=== PATIENT | female | born 1950 | race African-American/Black ===

== ENCOUNTER → 2016-12-11 | Outpatient (CLI) | payer MEDICARE, OTHER ==
--- NOTE | 2016-12-11 17:18 | WOMENS IMAGING REPORT ---
EXAM DESCRIPTION: LEFT SCREENING MAMMO W/CAD COMPLETED DATE/TIME: 12/11/2016 11:25 am REASON FOR STUDY: ROUTINE LEFT SCREENING;Z12.31 Z12.31 ENCNTR SCREEN MAMMOGRAM FOR MALIGNANT NEOPLA SM OF CHRISTIAN COMPARISON: 12/11/2015 and 12/30/2014. TECHNIQUE: Standard craniocaudal and mediolateral oblique views of the breast recorded using digital acquisition. LIMITATIONS: None. FINDINGS: BREAST: left Findings present which are benign by mammographic criteria. No suspicious masses, calcifications or a rchitectural distortion. Pertinent benign findings: Stable calcifications. Read with the assistance of CAD. .[facility] - R2 Cenova Version 1.3 .[facility] Imaging - R2 Cenova Version 1.3 .[facility] - R2 Cenova Version 2.4 [place] [place] C[place]ova [place] 2.4 .[facility] - R2 Weld Inspector Version 9.2 Benign mammographic findings may include one or more of the following: Smooth masses, popcorn/rim/co arse calcifications, asymmetries, post-procedure changes, and lesions with long-standing stability. IMPRESSION: NORMAL MAMMOGRAM. BIRADS 2. BREAST DENSITY: c. The breasts are heterogeneously dense, which may obscure small masses. BIRAD: 2 BENIGN FINDING(S) RECOMMENDATION: RECOMMENDATION: ROUTINE SCREENING. COMMENT: The patient has been notified of the results by letter per SA requirements. Additional no tification policies are in place for contacting patient with suspicious or incomplete findings. Quality ID #[id number]: The [employer] recommends an annual screening mammogram for women aged 40 years or over. This facility utilizes a reminder system to ensure that all patients receive reminder letters, and/or direct phone calls for appointments. This includes reminders for routine scr eening mammograms, diagnostic mammograms, or other Breast Imaging Interventions when appropriate. Th is patient will be placed in the appropriate reminder system. The [employer] (ACR) has developed recommendations for screening MRI of the breast s in certain patient populations, to be used in conjunction with mammography. Breast MRI surveillance may be appropriate for women with more than 20% lifetime risk of developing breast cancer as determi lyndsey by genetic testing, significant family history of the disease, or history of mantle radiation for Hodgkins Disease. ACR Practice Guidelines 2008. TECHNICAL DOCUMENTATION: FINDING NUMBER: (1) ASSESSMENT: (1) JOB ID: [id number] [employer]- All Rights Reserved
== END ==
LOC: WI 11:05
PROVIDERS: ATTEND Surgery
DX: Z12.31 Encounter for screening mammogram for malignant neoplasm of breast (principal)
CPT/HCPCS: G0202-52

== ENCOUNTER → 2017-01-03 | Outpatient (CLI) | payer MEDICARE, OTHER ==
--- NOTE | 2017-01-03 11:19 | RADIOLOGY REPORT (SQ) ---
EXAM DESCRIPTION: CT ABD/PELVIS NO ORAL OR IV COMPLETED DATE/TIME: 01/03/2017 8:08 am REASON FOR STUDY: ABD PAIN (R10.9) R10.9 UNSPECIFIED ABDOMINAL PAIN COMPARISON: None. TECHNIQUE: CT scan of the abdomen and pelvis performed without intravenous or oral contrast. Images reviewed with lung, soft tissue, and bone windows. Reconstructed coronal and sagittal MPR images revi ewed. All images stored on PACS. All CT scanners at this facility use dose modulation, iterative reconstruction, and/or weight based d osing when appropriate to reduce radiation dose to as low as reasonably achievable (ALARA). [facility]: Dose Right [facility]: CareDose [facility]: Dose Right [facility]: Teradose 4D [facility]: Smart Technologies RADIATION DOSE: Up-to-date CT equipment and radiation dose reduction techniques were employed. CTDIv ol: 27.5 mGy. DLP: 1496 mGy-cm.mGy. LIMITATIONS: None. FINDINGS: LOWER CHEST: No significant findings. No nodules or infiltrates. NON-CONTRASTED LIVER, SPLEEN, ADRENALS: Evaluation limited by lack of IV contrast. No identified sign ificant masses. PANCREAS: No masses. No peripancreatic inflammatory changes. GALLBLADDER: Multiple gallstones are present. There is no pericholecystic fluid or gallbladder wall thickening. There is no ductal dilatation. RIGHT KIDNEY AND URETER: No suspicious masses. Assessment limited by lack of IV contrast. No signif icant calcifications. No hydronephrosis or hydroureter. LEFT KIDNEY AND URETER: No suspicious masses. Assessment limited by lack of IV contrast. No signifi cant calcifications. No hydronephrosis or hydroureter. AORTA AND RETROPERITONEUM: No aneurysm. No retroperitoneal masses or adenopathy. BOWEL AND PERITONEAL CAVITY: A loop of what appears to be small bowel is seen in a ventral hernia lowell t measures about 5 or 6 cm in transverse diameter. There is no evidence of bowel obstruction. APPENDIX: Not identified. PELVIS, BLADDER, AND ABDOMINAL WALL:Urinary bladder is incompletely filled. There appears to be a sm all air bubble in the bladder. Has patient recently been catheterized? BONES: Bridging osteophytes are seen in the upper lumbar spine. OTHER: No other significant finding. IMPRESSION: 1. There is a prominent ventral hernia contains a loop bowel with no evidence of bowel obstruction. 2. There is a small bubble of air in the urinary bladder as discussed. TECHNICAL DOCUMENTATION: JOB ID: [id number] Quality ID # [id number]: Final reports with documentation of one or more dose reduction techniques (e.g., Au tomated exposure control, adjustment of the mA and/or kV according to patient size, use of iterative reconstruction technique) 2010 [employer]- All Rights Reserved
== END ==
LOC: RAD 07:30
PROVIDERS: ATTEND Internal Medicine Nephrology
DX: R10.30 Lower abdominal pain, unspecified (principal); N18.6 End stage renal disease
CPT/HCPCS: 74176

== ENCOUNTER → 2017-08-11 | Outpatient (CLI) | payer MEDICARE, OTHER ==
--- NOTE | 2017-08-11 09:52 | WOMENS IMAGING REPORT ---
EXAM DESCRIPTION: BONE DENSITY HIP/SPINE COMPLETED DATE/TIME: 08/11/2017 8:44 am REASON FOR STUDY: ASYMPTOMATIC MENOPAUSAL STATE Z78.0 ASYMPTOMATIC MENOPAUSAL STATE COMPARISON: None. TECHNIQUE: Dual-Energy X-ray Absorptiometry (DEXA) of the AP Spine and Hip. LIMITATIONS: None. FINDINGS: LUMBAR SPINE: The bone mineral density (BMD) measured from L1-L4 in the AP projection correlates with a T-score of +1.6, which is normal as defined by the World Health Organization. HIP: The bone mineral density (BMD) measured in the left femoral neck at the hip correlates with a T-score of +1.7, which is normal as defined by the World Health Organization. IMPRESSION: 1. LUMBAR SPINE: Normal 2. HIP: Normal COMMENT: The World Health Organization defines low BMD as follows: T-score: Normal: Greater than -1.0 Osteopenia: Between -1.0 and -2.5 Osteoporosis: Less than -2.5 without fractures Established osteoporosis: Less than -2.5 with fractures In general, you may wish to consider: Diagnosis Treatment Follow-up DEXA Normal BMD Prevention 2-3 years Osteopenia Prevention/Therapy 1-2 years Osteoporosis Therapy Yearly TECHNICAL DOCUMENTATION: JOB ID: [id number] [employer] All Rights Reserved
== END ==
LOC: WI 08:10
PROVIDERS: ATTEND Internal Medicine Geriatric Medicine
DX: Z78.0 Asymptomatic menopausal state (principal)
CPT/HCPCS: 77080

== ENCOUNTER 2017-08-22 22:39 | Emergency (ER) | payer MEDICARE, OTHER ==
[2017-08-22] MEDS ORDERED: DIPHENHYDRAMINE HCL 50 MG/ML VIAL IV ONE (22:51)
[2017-08-22] MEDS ORDERED: EPINEPHRINE INJ/PF 1 MG/1 ML AMPULE IM ONE (22:51)
[2017-08-22] MEDS ORDERED: FAMOTIDINE INJ/PF 20 MG/2 ML SDV IV ONE (22:52)
[2017-08-22] MEDS ORDERED: METHYLPREDNISOLONE INJ 125 MG/2 ML SDV IV ONE (22:52)
[2017-08-22] MEDS ORDERED: EPINEPHRINE INJ/PF 1 MG/1 ML AMPULE ONE (22:52)
--- NOTE | 2017-08-22 23:15 | ER Document Report ---
ED General - General Chief Complaint: Allergic Reaction Stated Complaint: POSSIBLE ALLERGIC REACTION Time Seen by Provider: 08/22/17 22:51 Notes: Patient is a 67-year-old male who presents with complaint of allergic reaction after eating shrimp. She has had allergic reaction to shrimp in the past. She said yesterday she transferred to the first time in a while and she did okay and therefore should again today. Today after eating it she immediately started to feel swollen red and itching. She is initially start feel itching into her chest and upper extremities and then started to progress into her throat and neck and face. She denies any difficulty talking but says she feels as if her neck is swelling. She is a dialysis patient. She does have a dialysis catheter in the right upper chest. She denies history of ME or coronary stenting. She denies chest pain at this time. No medicated of treatment before arrival to the ER. TRAVEL OUTSIDE OF THE [place] IN LAST 30 DAYS: No - Related Data Allergies/Adverse Reactions: Heparin Analogues [Heparin Agents] Allergy (Mild, Verified 09/15/13 10:25) latex [Latex] Allergy (Mild, Verified 09/15/13 10:25) Generalized Itching Past Medical History - Social History Smoking Status: Never Smoker Frequency of alcohol use: None Drug Abuse: None Family History: Reviewed & Not Pertinent - Past Medical History Cardiac Medical History: Reports: Hx Atrial Fibrillation, Hx Congestive Heart Failure, Hx Hypercholesterolemia, Hx Hypertension, Hx Heart Murmur Denies: Hx Coronary Artery Disease, Hx Heart Attack Pulmonary Medical History: Reports: Hx Bronchitis, Hx COPD Denies: Hx Asthma, Hx Pneumonia, Hx Tuberculosis Neurological Medical History: Denies: Hx Cerebrovascular Accident, Hx Seizures Endocrine Medical History: Reports: Hx Diabetes Mellitus Type 1, Hx Hypothyroidism Renal/ Medical History: Reports: Hx End Stage Renal Disease GI Medical History: Reports: Hx Gastroesophageal Reflux Disease Musculoskeltal Medical History: Reports Hx Arthritis Psychiatric Medical History: Reports: Hx Depression Past Surgical History: Reports: Hx Hysterectomy, Hx Tonsillectomy, Hx Vascular Surgery - right subclavian perm cath. Denies: Hx Pacemaker - Immunizations Hx Diphtheria, Pertussis, Tetanus Vaccination: Yes - <5 years Hx Pneumococcal Vaccination: 04/20/12 Review of Systems - Review of Systems Notes: My Normal Review Basic REVIEW OF SYSTEMS: CONSTITUTIONAL : Denies fever, chills, or sweats. Denies recent illness. EENT: Patient of neck swelling. CARDIOVASCULAR: Denies chest pain. RESPIRATORY: Denies cough, cold, or chest congestion. Denies shortness of breath, difficulty breathing, or wheezing. GASTROINTESTINAL: Denies abdominal pain. Denies nausea, vomiting, or diarrhea. FEMALE GENITOURINARY: Denies vaginal bleeding, abnormal or irregular periods. LMP: MUSCULOSKELETAL: Denies neck or back pain or joint pain or swelling. SKIN: Redness of skin of neck face and upper torso. NEUROLOGICAL: Denies altered mental status or loss of consciousness. Denies headache. Denies weakness or paralysis or loss of use of either side. Denies problems with gait or speech. Denies sensory or motor loss. ALL OTHER SYSTEMS REVIEWED AND NEGATIVE. Physical Exam - Vital signs Vitals: Temp Pulse Resp BP Pulse Ox 98.8 F 83 18 146/63 H 96 08/22/17 22:40 08/22/17 22:40 08/22/17 22:40 08/22/17 22:40 08/22/17 22:40 - Notes Notes: General Appearance: Well nourished, alert, patient's voice is normal however she appears anxious because her reaction. She is not gasping for breath and she is handling secretions appropriately. Vitals: reviewed, See vital signs table. Head: no swelling or tenderness to the head Eyes: PERRL, EOMI, Conjuctiva clear Mouth: No decreasd moisture Throat: No tonsillar inflammation, No airway obstruction, No lymphadenopathy. No glossal swelling. Neck: Some edema of the skin along the anterior aspect of her neck and upper chest. Lungs: No wheezing, No rales, No rhonci, No accessory muscle use, good air exchange bilaterally. Heart: Normal rate, Regular rythm, No murmur Abdomen: Normal BS, soft, No rigidity, No abdominal tenderness, No guarding, no rebound, no abdominal masses, no organomegaly Extremities: strength 5/5 in all extremities, good pulses in all extremities, no swelling or tenderness in the extremities, no edema. Skin: Redness to the skin over the upper extremities, upper chest, neck and face. Neuro: speech clear, oriented x 3, normal affect, responds appropriately to questions. Course - Re-evaluation Re-evalutation: 08/22/17 23:09 Patient received I am epi. She started feel some improvement. She is now getting the Benadryl IV as well as a Pepcid and Solu-Medrol. We will continue to reassess the patient closely. She is on a monitor. Heart rate is normal. She denies any chest pain. 08/23/17 00:34 Patient symptoms are now totally resolved. She looks very well. I will watch her for a little bit longer to make sure that she does not have any rebound reaction. Patient is agreeable to this. Lung rodriguez are clear. There is no swelling in the throat or neck. 08/23/17 06:18 Patient was monitored for several hours. She had no recurrence of swelling, no recurrence of the rash, her lung rodriguez remain clear. She looks well. Patient will be discharged home. I will not discharge her home on steroids because she is diabetic and I am worried that her blood sugars become poorly controlled. Patient to return to ER immediately if she has recurrent thoughts of itching or rash not responding to Benadryl, any difficulty breathing, any difficulty swallowing, or she feels unwell. Patient also prescribed an EpiPen. Dictation of this chart was performed using voice recognition software; therefore, there may be some unintended grammatical errors. - Vital Signs Vital signs: Temp Pulse Resp BP Pulse Ox 98.8 F 83 17 103/58 L 99 08/22/17 22:40 08/22/17 22:40 08/23/17 01:20 08/23/17 01:21 08/23/17 01:20 Discharge - Discharge Clinical Impression: Allergic reaction Qualifiers: Encounter type: initial encounter Qualified Code(s): T78.40XA - Allergy, unspecified, initial encounter Condition: Good Disposition: HOME, SELF-CARE Additional Instructions: ACUTE ALLERGIC REACTION: Your symptoms are due to an allergic reaction. Allergy can cause hives, swelling of the hands, feet, and face, hoarseness, and difficulty swallowing or breathing. It may be due to exposure to medication, animal dander, foods, infection, or insect bites. Medication is a common cause, even when prior use of this same medication caused no problems. Acute treatment may include adrenalin and antihistamines. Usually, the specific allergic agent can't be identified unless repeated episodes occur. Home treatment includes the following: (1) Stop any suspicious medications. This will be discussed with you. (2) Oral antihistamines for the next four to five days. Example, diphenhydramine (Benadryl) every four hours. (3) You may also use cimetidine (Tagamet), ranitidine (Zantac), or famotidine ( Pepcid) every four hours if diphenhydramine is not controlling itching and hives. (4) Avoid aspirin until the hives completely disappear. (5) Avoid hot baths or showers until the hives are completely gone. Call the doctor if faintness, difficulty swallowing, tightness in the chest , or wheezing occurs. EPINEPHRINE: An injection of epinephrine (also called adrenalin) is used to treat allergic reactions, asthma, and some other medical conditions. It is a stimulant medication that consticts blood vessels, relaxes smooth muscles such as in the bronchioles of the lung, elevates blood pressure, and increases heart rate. It can temporarily make you feel very nervous and shakey, but it's affects last only a short time, about 15 to 30 minutes at most. STEROID MEDICATION INJECTION: You have been given an injection of medicine of the cortisone/steroid class. This medication is used to control inflammation or allergy. It is often continued as a pill for a short period of time, until the acute process subsides. There are usually no side effects from short-term use of cortisone-like medications. Some persons feel an increased sense of well-being and are not sleepy at bedtime. Long-term use of cortisone medications is best avoided, unless required for a severe condition. If your condition does not remit, or relapses after the course of corticosteroid medication, you should consult your physician. ANTIHISTAMINES: An antihistamine has been given and/or prescribed to control your symptoms. Antihistamines are used for many reasons, including itching, watering eyes, runny nose, allergic swelling, hives, and insect stings. Antihistamines may cause drowsiness, especially with the first dose. Do not operate machinery or drive while under the effects of the medication. Other common side effects include dry mouth and eyes. In older persons, antihistamines can occasionally cause urinary retention, constipation, and trouble focusing the eyes. Do not combine the medication with alcohol, or with any other medication without talking to your doctor. FOLLOW-UP CARE: If you have been referred to a physician for follow-up care, call the physician s office for an appointment as you were instructed or within the next two days. If you experience worsening or a significant change in your symptoms, notify the physician immediately or return to the Emergency Department at any time for re-evaluation. Please return to the ER immediately if you have to use the Epipen, have facial swelling, tongue swelling, throat swelling, difficulty breathing, or feel that your reaction is becoming severe. Please use the Epipen if you have any facial swelling, tongue swelling, or difficulty breathing. Please take Benadryl 25 mg if you have itching or start to have a rash again. You can take another 25 mg of Benadryl if you are still having the itching 30 minutes later. Return to the ER if your rash progresses or if you have any difficulty breathing or swallowing. You can take a maximum of 50 mg of Benadryl every 6 hours. Prescriptions: Diphenhydramine HCl [Benadryl] 25 mg PO Q6 PRN #20 capsule PRN Reason: Epinephrine [Epipen 2-Koffi] 0.3 mg IM ASDIR PRN #1 packet PRN Reason: Referrals: SHYAM ROSENTHAL MD [Primary Care Provider] - 08/25/17
[2017-08-23 01:24] VITALS: BP 103/58
== END 2017-08-23 01:31 | disposition home or self-care (01) ==
LOC: ER 22:39
DX: T78.40XA Allergy, unspecified, initial encounter (principal); X58.XXXA Exposure to other specified factors, initial encounter; E10.22 Type 1 diabetes mellitus with diabetic chronic kidney disease; I13.2 Hypertensive heart and chronic kidney disease with heart failure and with stage 5 chronic kidney disease, or end stage renal disease; N18.6 End stage renal disease; I50.9 Heart failure, unspecified; I48.91 Unspecified atrial fibrillation; Z99.2 Dependence on renal dialysis; Z91.040 Latex allergy status; Z90.710 Acquired absence of both cervix and uterus
CPT/HCPCS: 99283; 96372; 96374; 96375; J1200; J2930; S0028; J0171

== ENCOUNTER → 2017-12-12 | Outpatient (CLI) | payer MEDICARE, OTHER ==
--- NOTE | 2017-12-12 13:59 | WOMENS IMAGING REPORT ---
EXAM DESCRIPTION: LEFT SCREENING MAMMO W/CAD COMPLETED DATE/TIME: 12/12/2017 10:06 am REASON FOR STUDY: SCREENING MAMMO Z12.31 ENCNTR SCREEN MAMMOGRAM FOR MALIGNANT NEOPLASM OF CHRISTIAN COMPARISON: [id number] TECHNIQUE: Standard craniocaudal and mediolateral oblique views of the breast recorded using digital acquisition. LIMITATIONS: None. FINDINGS: BREAST: left Findings present which are benign by mammographic criteria. No suspicious masses, calcifications or a rchitectural distortion. Pertinent benign findings: Sclerosing adenosis. Vascular calcifications. Read with the assistance of CAD. .[facility] - R2 Cenova Version 1.3 .[facility] Imaging - R2 Cenova Version 1.3 .[facility] - R2 Cenova Version 2.4 .[facility] [place] Cenova Version 2.4 .[facility] - R2 Senior Examiner Version 9.2 Benign mammographic findings may include one or more of the following: Smooth masses, popcorn/rim/co arse calcifications, asymmetries, post-procedure changes, and lesions with long-standing stability. IMPRESSION: NORMAL MAMMOGRAM. BIRADS 2. BREAST DENSITY: b. There are scattered areas of fibroglandular density. BIRAD: 2 BENIGN FINDING(S) RECOMMENDATION: RECOMMENDATION: ROUTINE SCREENING. COMMENT: The patient has been notified of the results by letter per SA requirements. Additional no tification policies are in place for contacting patient with suspicious or incomplete findings. Quality ID #[id number]: The [employer] [employer] recommends an annual screening mammogram for women aged 40 years or over. This facility utilizes a reminder system to ensure that all patients receive reminder letters, and/or direct phone calls for appointments. This includes reminders for routine scr eening mammograms, diagnostic mammograms, or other Breast Imaging Interventions when appropriate. Th is patient will be placed in the appropriate reminder system. The [employer] [employer] (ACR) has developed recommendations for screening MRI of the breast s in certain patient populations, to be used in conjunction with mammography. Breast MRI surveillance may be appropriate for women with more than 20% lifetime risk of developing breast cancer as determi lyndsey by genetic testing, significant family history of the disease, or history of mantle radiation for Hodgkins Disease. ACR Practice Guidelines 2008. TECHNICAL DOCUMENTATION: FINDING NUMBER: (1) ASSESSMENT: (1) JOB ID: [id number]- All Rights Reserved Reading location - IP/workstation name: HOT W[employer] HEATER [email or web address]
== END ==
LOC: WI 08:48
PROVIDERS: ATTEND Surgery
DX: Z12.31 Encounter for screening mammogram for malignant neoplasm of breast (principal)

== ENCOUNTER 2018-04-04 13:06 | Emergency (ER) | payer MEDICARE, OTHER ==
[2018-04-04 13:26] VITALS: BP 192/90
--- NOTE | 2018-04-04 13:39 | ER Document Report ---
ED Medical Screen (RME) - General Chief Complaint: Respiratory Distress Stated Complaint: WEAKNESS,SHORT OF BREATH/DIALYSIS Time Seen by Provider: 04/04/18 13:31 Mode of Arrival: Wheelchair Information source: Patient Notes: Patient presents complaining of shortness of breath. Patient is a dialysis patient and last dialyzed on Friday of this week. Patient denies any swelling. hx: Diabetes, hypertension, chronic renal failure, COPD I have greeted and performed a rapid initial assessment of this patient. A comprehensive ED assessment and evaluation of the patient, analysis of test results and completion of the medical decision making process will be conducted by additional ED providers. TRAVEL OUTSIDE OF THE [place] IN LAST 30 DAYS: No - Related Data Allergies/Adverse Reactions: Heparin Analogues [Heparin Agents] Allergy (Mild, Verified 04/04/18 13:11) latex [Latex] Allergy (Mild, Verified 04/04/18 13:11) Generalized Itching Past Medical History - Social History Frequency of alcohol use: None Drug Abuse: None - Past Medical History Cardiac Medical History: Reports: Hx Atrial Fibrillation, Hx Congestive Heart Failure, Hx Hypercholesterolemia, Hx Hypertension, Hx Heart Murmur Denies: Hx Coronary Artery Disease, Hx Heart Attack Pulmonary Medical History: Reports: Hx Bronchitis, Hx COPD Denies: Hx Asthma, Hx Pneumonia, Hx Tuberculosis Neurological Medical History: Denies: Hx Cerebrovascular Accident, Hx Seizures Endocrine Medical History: Reports: Hx Diabetes Mellitus Type 1, Hx Hypothyroidism Renal/ Medical History: Reports: Hx End Stage Renal Disease. Denies: Hx Peritoneal Dialysis GI Medical History: Reports: Hx Gastroesophageal Reflux Disease Musculoskeltal Medical History: Reports Hx Arthritis Psychiatric Medical History: Reports: Hx Depression Past Surgical History: Reports: Hx Abdominal Surgery - partial colon resection, Hx Breast Surgery - right lumpectomy, Hx Hysterectomy, Hx Tonsillectomy, Hx Vascular Surgery - right subclavian perm cath. Denies: Hx Pacemaker - Immunizations Hx Diphtheria, Pertussis, Tetanus Vaccination: Yes - <5 years Physical Exam - Vital signs Vitals: Temp Pulse Resp BP Pulse Ox 97.3 F 91 22 H 192/90 H 100 04/04/18 13:25 04/04/18 13:25 04/04/18 13:25 04/04/18 13:25 04/04/18 13:25 - Respiratory Respiratory status: Other - Speaks in short forward sentences Breath sounds: Normal Chest palpation: Normal Course - Vital Signs Vital signs: Temp Pulse Resp BP Pulse Ox 97.3 F 91 22 H 192/90 H 100 04/04/18 13:25 04/04/18 13:25 04/04/18 13:25 04/04/18 13:25 04/04/18 13:25 Doctor's Discharge - Discharge Referrals: MALENA ALCALA MD [Primary Care Provider] - Follow up as needed
[2018-04-04 14:39] LABS: ABSOLUTE EOSINOPHILS # (AUTO) 0.1 10^3/uL (0.0-0.6); ABSOLUTE LYMPHOCYTES (AUTO) 1.3 10^3/uL (0.5-4.7); ABSOLUTE MONOCYTES (AUTO) 0.5 10^3/uL (0.1-1.4); BASOPHILS % (AUTO) 0.4 % (0-2); EOSINOPHILS % (AUTO) 1.1 % (0-6); HEMATOCRIT 34.2 % (36.0-47.0); HEMOGLOBIN 11.6 g/dL (12.0-15.5); LYMPHOCYTES % (AUTO) 27.3 % (13-45); MEAN CORPUSCULAR HEMOGLOBIN 31.9 pg (27.0-33.4); MEAN CORPUSCULAR VOLUME 94 fl (80-97); MONOCYTES % (AUTO) 10.1 % (3-13); PLATELET COUNT 195 10^3/uL (150-450); RED BLOOD COUNT 3.65 10^6/uL (3.72-5.28); RED CELL DISTRIBUTION WIDTH 13.7 % (11.5-14.0); SEGMENTED NEUTROPHILS % (AUTO) 61.1 % (42-78); TOTAL CELLS COUNTED % (AUTO) 100 %; WHITE BLOOD COUNT 4.9 10^3/uL (4.0-10.5)
[2018-04-04 14:58] LABS: ALANINE AMINOTRANSFERASE 12 U/L (9-52); ALBUMIN 3.7 g/dL (3.5-5.0); ALKALINE PHOSPHATASE 105 U/L (38-126); ANION GAP 9 (5-19); ASPARTATE AMINO TRANSFERASE 17 U/L (14-36); BILIRUBIN,DIRECT 0.4 mg/dL (0.0-0.4); BILIRUBIN,TOTAL 0.5 mg/dL (0.2-1.3); BLOOD UREA NITROGEN 50 mg/dL (7-20); CALCIUM 8.9 mg/dL (8.4-10.2); CARBON DIOXIDE 27 mmol/L (22-30); CHLORIDE 106 mmol/L (98-107); CREATINE KINASE 93 U/L (30-135); GLUCOSE 320 mg/dL (75-110); POTASSIUM 3.8 mmol/L (3.6-5.0); SODIUM 141.9 mmol/L (137-145)
[2018-04-04 15:09] LABS: CREATINE KINASE MB 0.44 ng/mL (<4.55); NT PRO BNP 7920 pg/mL (5-900); TROPONIN I < 0.012 ng/mL
[2018-04-04] MEDS ORDERED: CLONIDINE HCL 0.1 MG TABLET PO ONE (17:41)
--- NOTE | 2018-04-04 17:43 | ER Document Report ---
ED General - General Chief Complaint: Respiratory Distress Stated Complaint: WEAKNESS,SHORT OF BREATH/DIALYSIS Time Seen by Provider: 04/04/18 13:31 Mode of Arrival: Wheelchair Notes: This is a 67-year-old female on dialysis who dialyzes 3 times a week. Has not had dialysis for 2 days. Patient states that she is feeling a little bit short of breath. She normally wears oxygen but has not been wearing it. Was told if she was having symptoms to come to the ER and we would do dialysis. Patient was informed shortly after arrival that we do not do dialysis that we needed to check her labs. Patient does not want anything done at this time. States that if we are not going to do anything for her dialysis needs that she will go home. TRAVEL OUTSIDE OF THE [place] IN LAST 30 DAYS: No - HPI Onset: Yesterday Onset/Duration: Gradual, Worse Severity: Mild Pain Level: 0 Associated symptoms: Shortness of breath - Related Data Allergies/Adverse Reactions: Heparin Analogues [Heparin Agents] Allergy (Mild, Verified 04/04/18 13:11) latex [Latex] Allergy (Mild, Verified 04/04/18 13:11) Generalized Itching Past Medical History - General Information source: Patient, [facility] Records - Social History Smoking Status: Never Smoker Frequency of alcohol use: None Drug Abuse: None Family History: Reviewed & Not Pertinent Patient has suicidal ideation: No Patient has homicidal ideation: No - Past Medical History Cardiac Medical History: Reports: Hx Atrial Fibrillation, Hx Congestive Heart Failure, Hx Hypercholesterolemia, Hx Hypertension, Hx Heart Murmur Denies: Hx Coronary Artery Disease, Hx Heart Attack Pulmonary Medical History: Reports: Hx Bronchitis, Hx COPD Denies: Hx Asthma, Hx Pneumonia, Hx Tuberculosis Neurological Medical History: Denies: Hx Cerebrovascular Accident, Hx Seizures Endocrine Medical History: Reports: Hx Diabetes Mellitus Type 1, Hx Hypothyroidism Renal/ Medical History: Reports: Hx End Stage Renal Disease. Denies: Hx Peritoneal Dialysis GI Medical History: Reports: Hx Gastroesophageal Reflux Disease Musculoskeletal Medical History: Reports Hx Arthritis Psychiatric Medical History: Reports: Hx Depression Past Surgical History: Reports: Hx Abdominal Surgery - partial colon resection, Hx Breast Surgery - right lumpectomy, Hx Hysterectomy, Hx Tonsillectomy, Hx Vascular Surgery - right subclavian perm cath. Denies: Hx Pacemaker - Immunizations Hx Diphtheria, Pertussis, Tetanus Vaccination: Yes - <5 years Hx Pneumococcal Vaccination: 04/20/12 Review of Systems - Review of Systems Notes: Constitutional: denies: Chills, Diaphoresis, Fever, Malaise, Weakness EENT: denies: Eye discharge, Blurred vision, Tearing, Double vision, Nose congestion, Nose discharge, Throat swelling, Mouth pain Cardiovascular: denies: Palpitations, Heart racing, Orthopnea, Dyspnea, Chest pain Respiratory: denies: Cough, Hurts to breathe, does complain of some mild shortness of breath Gastrointestinal: denies: Abdominal pain, Diarrhea, Nausea, Vomiting, Black stools, bright red blood in stool Genitourinary: denies: Burning, Dysuria, Discharge, Frequency, Flank pain, Hematuria Musculoskeletal: denies: Joint pain, Joint swelling, Muscle pain, Muscle stiffness, back pain Hematologic/Lymphatic: denies: Anemia, Easy bleeding, Easy bruising, Blood clots. History of renal failure on dialysis Neurological/Psychological: denies: Confusion, Dementia, Depression, Loss of consciousness Skin: No lesions, no masses, no skin breakdown, no abscesses Physical Exam - Vital signs Vitals: Temp Pulse Resp BP Pulse Ox 97.3 F 91 22 H 192/90 H 100 04/04/18 13:25 04/04/18 13:25 04/04/18 13:25 04/04/18 13:25 04/04/18 13:25 Interpretation: Normal - General General appearance: Appears well, Alert - HEENT Head: Normocephalic, Atraumatic Eyes: Normal Pupils: PERRL - Respiratory Respiratory status: No respiratory distress Chest status: Nontender Breath sounds: Normal Chest palpation: Normal - Cardiovascular Rhythm: Regular Heart sounds: Normal auscultation Murmur: No - Abdominal Inspection: Normal Distension: No distension Bowel sounds: Normal Tenderness: Nontender Organomegaly: No organomegaly - Back Back: Normal, Nontender - Extremities General upper extremity: Normal inspection, Nontender, Normal color, Normal ROM , Normal temperature General lower extremity: Normal inspection, Nontender, Normal color, Normal ROM , Normal temperature, Normal weight bearing. No: Norma's sign - Neurological Neuro grossly intact: Yes Cognition: Normal Orientation: AAOx4 [place] Coma Scale Eye Opening: Spontaneous [place] Coma Scale Verbal: Oriented [place] Coma Scale Motor: Obeys Commands [place] Coma Scale Total: 15 Speech: Normal Motor strength normal: LUE, RUE, LLE, RLE Sensory: Normal - Psychological Associated symptoms: Normal affect, Normal mood - Skin Skin Temperature: Warm Skin Moisture: Dry Skin Color: Normal Course - Re-evaluation Re-evalutation: 04/04/18 17:41 Laboratory 04/04/18 04/04/18 04/04/18 14:28 14:28 14:28 WBC 4.9 RBC 3.65 L Hgb 11.6 L Hct 34.2 L MCV 94 MCH 31.9 MCHC 34.0 RDW 13.7 Plt Count 195 Seg Neutrophils % 61.1 Lymphocytes % 27.3 Monocytes % 10.1 Eosinophils % 1.1 Basophils % 0.4 Absolute Neutrophils 3.0 Absolute Lymphocytes 1.3 Absolute Monocytes 0.5 Absolute Eosinophils 0.1 Absolute Basophils 0.0 Sodium 141.9 Potassium 3.8 Chloride 106 Carbon Dioxide 27 Anion Gap 9 BUN 50 H Creatinine 4.46 H Est GFR ( Amer) 12 L Est GFR (Non-Af Amer) 10 L Glucose 320 H Calcium 8.9 Magnesium 1.7 Total Bilirubin 0.5 Direct Bilirubin 0.4 Neonat Total Bilirubin Not Reportable Neonat Direct Bilirubin Not Reportable Neonat Indirect Bili Not Reportable AST 17 ALT 12 Alkaline Phosphatase 105 Creatine Kinase 93 CK-MB (CK-2) 0.44 Troponin I < 0.012 NT-Pro-B Natriuret Pep 7920 H Total Protein 7.0 Albumin 3.7 04/04/18 17:41 Potassium within normal limits. Slightly elevated blood pressure for her. BNP at baseline. Patient refusing EKG. No dialysis is available however patient does not have acute dialysis need. Patient is a [facility] dialysis patient. So we will advise her to follow-up with [facility]. Apparently they will be open tomorrow. Trying to confirm this at this time. Patient states that she does not want to be here anymore for we are going to give her dialysis right now and she would like to leave. Will DC at this time. - Vital Signs Vital signs: Temp Pulse Resp BP Pulse Ox 97.3 F 91 22 H 192/90 H 100 04/04/18 13:25 04/04/18 13:25 04/04/18 13:25 04/04/18 13:25 04/04/18 13:25 - Laboratory Result Diagrams: 04/04/18 14:28 04/04/18 14:28 Laboratory results interpreted by me: 04/04/18 04/04/18 04/04/18 14:28 14:28 14:28 RBC 3.65 L Hgb 11.6 L Hct 34.2 L BUN 50 H Creatinine 4.46 H Est GFR ( Amer) 12 L Est GFR (Non-Af Amer) 10 L Glucose 320 H NT-Pro-B Natriuret Pep 7920 H Discharge - Discharge Clinical Impression: Chronic kidney disease with end stage renal failure on dialysis Condition: Good Disposition: HOME, SELF-CARE Instructions: Kidney Failure ([facility]) Additional Instructions: Please call the gas services number with Patrizia rojas. The ER physician believes that you are stable to be discharged at this time however you will need dialysis in the next 1-2 days. In the event that you are unable to get dialysis or you have other concerns or any worsening symptoms please return for repeat evaluation. Referrals: MALENA ALCALA MD [NO LOCAL MD] - Follow up as needed KAEL LOGAN MD [ACTIVE STAFF] - 04/06/18
== END 2018-04-04 18:04 | disposition home or self-care (01) ==
LOC: ER 13:06
DX: I12.0 Hypertensive chronic kidney disease with stage 5 chronic kidney disease or end stage renal disease (principal); E10.22 Type 1 diabetes mellitus with diabetic chronic kidney disease; N18.6 End stage renal disease; R06.00 Dyspnea, unspecified; R53.1 Weakness; R06.02 Shortness of breath; Z99.81 Dependence on supplemental oxygen; Z99.2 Dependence on renal dialysis; J44.9 Chronic obstructive pulmonary disease, unspecified; E10.9 Type 1 diabetes mellitus without complications
CPT/HCPCS: 99284; 36415; 82553; 82550; 83735; 85025; 80053; 84484; 83880; A9270

== ENCOUNTER 2018-07-16 01:58 | Emergency (ER) | payer MEDICARE, OTHER ==
--- NOTE | 2018-07-16 02:35 | ER Document Report ---
ED General - General Chief Complaint: Respiratory Distress Stated Complaint: SOB/CHEST PAIN Time Seen by Provider: 07/16/18 02:11 Notes: Patient is a 68-year-old female with end-stage renal disease on dialysis, atrial fibrillation and CHF that presents to the emergency department for chief complaint of shortness of breath and chest pain. Patient states that her pain started 3 days ago she described as heartburn, it seemed to be worse with food, she was taken Tums, which initially was working and then it stopped working. Her dialysis physician prescribed her something specifically for the heartburn which she states did not seem to work, and this evening she was feeling short of breath so she decided come to the emergency department. She usually gets dialysis Friday, has not missed any recent sessions of dialysis. She states she is compliant with her medications otherwise. She currently states she is not having any chest pain, it has subsided, but when she was having and she described as a burning sharp sensation in the middle of her chest, that was not worse with exertion, or better with rest. She denies history of CAD or having any cardiac stenting. Past Medical History: CHF, end-stage renal disease on dialysis, GERD, atrial fibrillation Past Surgical History: Dialysis port placement, fistula placement, mastectomy Social History: Denies current tobacco, alcohol or drug use Family History: Reviewed and noncontributory for presenting illness Allergies: Reviewed, see documented allergy list. REVIEW OF SYSTEMS: Other than noted above, the 12 point review of systems was reviewed with the patient and were negative, all pertinent findings are included in the HPI. PHYSICAL EXAMINATION: Vital signs reviewed, nursing noted reviewed. GENERAL: Obese, chronically ill-appearing female, nontoxic appearing HEAD: Atraumatic, normocephalic. EYES: Eyes appear normal, extraocular movements intact, sclera anicteric, conjunctiva are normal. ENT: nares patent, oropharynx clear without exudates. Moist mucous membranes. NECK: Normal range of motion, supple without lymphadenopathy LUNGS: Breath sounds clear to auscultation bilaterally and equal. No wheezes rales or rhonchi. Chest wall: Right chest wall, tunneled dialysis catheter present, examined, dressing not saturated, no evidence of infection at insertion site. HEART: Regular rate and rhythm without murmurs ABDOMEN: Soft, nontender, normoactive bowel sounds. No rebound, guarding, or rigidity. No masses appreciated. EXTREMITIES: Nontender, good range of motion, trace lower extremity edema NEUROLOGICAL: No focal neurological deficits. Moves all extremities spontaneously Motor and sensory grossly intact on exam. PSYCH: Normal mood, normal affect. SKIN: Warm, Dry, normal turgor, no rashes or lesions noted on exposed skin TRAVEL OUTSIDE OF THE [place] IN LAST 30 DAYS: No - Related Data Allergies/Adverse Reactions: Heparin Analogues [Heparin Agents] Allergy (Mild, Verified 07/16/18 02:07) latex [Latex] Allergy (Mild, Verified 07/16/18 02:07) Generalized Itching Past Medical History - Social History Smoking Status: Never Smoker Family History: Reviewed & Not Pertinent - Past Medical History Cardiac Medical History: Reports: Hx Atrial Fibrillation, Hx Congestive Heart Failure, Hx Hypercholesterolemia, Hx Hypertension, Hx Heart Murmur Denies: Hx Coronary Artery Disease, Hx Heart Attack Pulmonary Medical History: Reports: Hx Bronchitis, Hx COPD Denies: Hx Asthma, Hx Pneumonia, Hx Tuberculosis Neurological Medical History: Denies: Hx Cerebrovascular Accident, Hx Seizures Endocrine Medical History: Reports: Hx Diabetes Mellitus Type 1, Hx Hypothyroidism Renal/ Medical History: Reports: Hx End Stage Renal Disease. Denies: Hx Peritoneal Dialysis GI Medical History: Reports: Hx Gastroesophageal Reflux Disease Musculoskeletal Medical History: Reports Hx Arthritis Psychiatric Medical History: Reports: Hx Depression Past Surgical History: Reports: Hx Abdominal Surgery - partial colon resection, Hx Breast Surgery - right lumpectomy, Hx Hysterectomy, Hx Tonsillectomy, Hx Vascular Surgery - right subclavian perm cath. Denies: Hx Pacemaker - Immunizations Hx Diphtheria, Pertussis, Tetanus Vaccination: Yes - <5 years Hx Pneumococcal Vaccination: 04/20/12 Physical Exam - Vital signs Vitals: Temp Pulse Resp BP Pulse Ox 97.7 F 60 28 H 133/61 H 97 07/16/18 02:05 07/16/18 02:05 07/16/18 02:05 07/16/18 02:05 07/16/18 02:05 Course - Re-evaluation Re-evalutation: Patient seen and examined vital signs reviewed. Laboratory data and imaging were ordered as appropriate for the patient's presenting symptoms and complaint, with consideration of any critical or life threatening conditions that may be associated with their obtained history and exam as noted above. Patient was treated with aspirin, nitro, she was also given Protonix and Pepcid Results were reviewed when available and demonstrated markedly elevated troponin at 7, BUN and creatinine, her or at expected levels for a patient on dialysis, normal potassium, EKG did show some ischemic changes, but no ST elevations. Cristhian shaikh is allergic to heparin and Lovenox. The patient was re-evaluated and was hemodynamically stable, but still having some pain, that is when she was placed on a nitro, I placed a call to [facility], for transfer for this patient with an end STEMI, and congestive heart failure and end-stage renal disease on dialysis, as we do not have the capabilities for left heart catheterization at this institution at this time, for patients with these comorbidities. I discussed the case with the cardiology nurse practitioner that was collection clerk, and discussed the patient's results and findings, and her allergy to heparin and Lovenox, I asked if they would like us to start her on an Integrilin drip as an option for a patient that has an allergy to heparin and Lovenox, but she did not think that was necessary at this time. She did accept the patient to be transferred, under the attending of Dr. Yaw Javed. Evaluation was most consistent with NSTEMI, chest pain Results were discussed with the patient at this point after careful consideration I feel that that patient should be transferred to [facility] due to NSTEMI. This was discussed with the patient that it is in the best interest for their care to be transferred, the risks and benefits of transfer were discussed, including but not limited to clinical deterioration during transport, respiratory distress, and potential for traumatic injuries. Patient agreed with this plan of care. *Note is created using voice recognition software and may contain spelling, syntax or grammatical errors. Laboratory 07/16/18 07/16/18 07/16/18 02:25 02:25 02:25 WBC 10.0 RBC 3.78 Hgb 12.2 Hct 36.3 MCV 96 MCH 32.4 MCHC 33.7 RDW 14.2 H Plt Count 212 Seg Neutrophils % 79.6 H Lymphocytes % 11.1 L Monocytes % 8.4 Eosinophils % 0.3 Basophils % 0.6 Absolute Neutrophils 7.9 Absolute Lymphocytes 1.1 Absolute Monocytes 0.8 Absolute Eosinophils 0.0 Absolute Basophils 0.1 Sodium 139.5 Potassium 4.0 Chloride 102 Carbon Dioxide 25 Anion Gap 13 BUN 51 H Creatinine 5.24 H Est GFR ( Amer) 10 L Est GFR (Non-Af Amer) 8 L Glucose 386 H Calcium 8.8 Total Bilirubin 0.7 Direct Bilirubin 0.3 Neonat Total Bilirubin Not Reportable Neonat Direct Bilirubin Not Reportable Neonat Indirect Bili Not Reportable AST 44 H ALT 16 Alkaline Phosphatase 94 CK-MB (CK-2) 5.01 H Troponin I 7.060 NT-Pro-B Natriuret Pep Total Protein 6.7 Albumin 3.7 07/16/18 02:25 WBC RBC Hgb Hct MCV MCH MCHC RDW Plt Count Seg Neutrophils % Lymphocytes % Monocytes % Eosinophils % Basophils % Absolute Neutrophils Absolute Lymphocytes Absolute Monocytes Absolute Eosinophils Absolute Basophils Sodium Potassium Chloride Carbon Dioxide Anion Gap BUN Creatinine Est GFR ( Amer) Est GFR (Non-Af Amer) Glucose Calcium Total Bilirubin Direct Bilirubin Neonat Total Bilirubin Neonat Direct Bilirubin Neonat Indirect Bili AST ALT Alkaline Phosphatase CK-MB (CK-2) Troponin I NT-Pro-B Natriuret Pep 30939 H Total Protein Albumin Chest X-Ray 07/16/18 02:27 IMPRESSION: Cardiomegaly. No acute cardiopulmonary process copyright 2011 [email or web address]- All Rights Reserved 07/16/18 05:20 Transport team arrived at bedside, transfer care given, patient was asymptomatic at time of transfer to EMS to take the patient to [facility]. All questions answered prior to transport. - Vital Signs Vital signs: Temp Pulse Resp BP Pulse Ox 97.7 F 84 17 140/90 H 100 07/16/18 05:16 07/16/18 04:41 07/16/18 05:16 07/16/18 05:16 07/16/18 05:16 - Laboratory Result Diagrams: 07/16/18 02:25 07/16/18 02:25 Laboratory results interpreted by me: 07/16/18 07/16/18 07/16/18 02:25 02:25 02:25 RDW 14.2 H Seg Neutrophils % 79.6 H Lymphocytes % 11.1 L BUN 51 H Creatinine 5.24 H Est GFR ( Amer) 10 L Est GFR (Non-Af Amer) 8 L Glucose 386 H AST 44 H CK-MB (CK-2) 5.01 H NT-Pro-B Natriuret Pep 07/16/18 02:25 RDW Seg Neutrophils % Lymphocytes % BUN Creatinine Est GFR ( Amer) Est GFR (Non-Af Amer) Glucose AST CK-MB (CK-2) NT-Pro-B Natriuret Pep 42973 H - EKG Interpretation by Me Additional EKG results interpreted by me: EKG demonstrates atrial fibrillation with a ventricular rate of 62 bpm, right axis deviation, QTC prolonged at 520 ms, there is T wave inversion in leads III and aVF, prior EKG is reviewed which demonstrated atrial flutter, these EKGs were remote from 2012. No more recent EKG for comparison at this time. Critical Care Note - Critical Care Note Total time excluding time spent on procedures (mins): 40 Comments: Critical care time 40 minutes exclusive from separate billable procedures for a patient requiring complex medical decision making, and high potential for clinical deterioration. Time spent obtaining history from patient or surrogate, discussions with consultants, development of treatment plan with patient or surrogate, evaluation of patient's response to treatment, examination of patient, ordering and performing treatments and interventions, ordering and review of laboratory studies, re-evaluation of patient's condition, ordering and review of radiographic studies and review of old charts Discharge - Discharge Clinical Impression: NSTEMI (non-ST elevated myocardial infarction) Chest pain Qualifiers: Chest pain type: unspecified Qualified Code(s): R07.9 - Chest pain, unspecified Condition: Stable Disposition: [facility] Referrals: SHYAM ROSENTHAL MD [Primary Care Provider] - Follow up as needed
[2018-07-16 02:43] LABS: ABSOLUTE BASOPHILS # (AUTO) 0.1 10^3/uL (0.0-0.2); ABSOLUTE LYMPHOCYTES (AUTO) 1.1 10^3/uL (0.5-4.7); ABSOLUTE MONOCYTES (AUTO) 0.8 10^3/uL (0.1-1.4); ABSOLUTE NEUT (AUTO) 7.9 10^3/uL (1.7-8.2); BASOPHILS % (AUTO) 0.6 % (0-2); EOSINOPHILS % (AUTO) 0.3 % (0-6); HEMATOCRIT 36.3 % (36.0-47.0); HEMOGLOBIN 12.2 g/dL (12.0-15.5); LYMPHOCYTES % (AUTO) 11.1 % (13-45); MEAN CORPUSCULAR HEMOGLOBIN 32.4 pg (27.0-33.4); MEAN CORPUSCULAR HGB CONC 33.7 g/dL (32.0-36.0); MEAN CORPUSCULAR VOLUME 96 fl (80-97); MONOCYTES % (AUTO) 8.4 % (3-13); PLATELET COUNT 212 10^3/uL (150-450); RED BLOOD COUNT 3.78 10^6/uL (3.72-5.28); RED CELL DISTRIBUTION WIDTH 14.2 % (11.5-14.0); SEGMENTED NEUTROPHILS % (AUTO) 79.6 % (42-78); TOTAL CELLS COUNTED % (AUTO) 100 %
[2018-07-16 03:00] LABS: ALANINE AMINOTRANSFERASE 16 U/L (9-52); ALBUMIN 3.7 g/dL (3.5-5.0); ALKALINE PHOSPHATASE 94 U/L (38-126); ANION GAP 13 (5-19); ASPARTATE AMINO TRANSFERASE 44 U/L (14-36); BILIRUBIN,DIRECT 0.3 mg/dL (0.0-0.4); BILIRUBIN,TOTAL 0.7 mg/dL (0.2-1.3); BLOOD UREA NITROGEN 51 mg/dL (7-20); CALCIUM 8.8 mg/dL (8.4-10.2); CARBON DIOXIDE 25 mmol/L (22-30); CHLORIDE 102 mmol/L (98-107); GLUCOSE 386 mg/dL (75-110); SODIUM 139.5 mmol/L (137-145); TOTAL PROTEIN 6.7 g/dL (6.3-8.2)
[2018-07-16] MEDS ORDERED: FAMOTIDINE INJ/PF 20 MG/2 ML SDV IV ONE (03:02)
[2018-07-16] MEDS ORDERED: PANTOPRAZOLE SODIUM 40 MG VIAL IV ONE (03:02)
[2018-07-16 03:12] LABS: CREATINE KINASE MB 5.01 ng/mL (<4.55)
--- NOTE | 2018-07-16 03:16 | RADIOLOGY REPORT (SQ) ---
EXAM DESCRIPTION: XR CHEST 1 VIEW COMPLETED DATE/TME: 07/16/2018 02:27 CLINICAL HISTORY: 68 years, Female, chest pain, shortness of breath COMPARISON: None. NUMBER OF VIEWS: 1 TECHNIQUE: Portable chest LIMITATIONS: None. FINDINGS: Cardiomegaly. Atheromatous change thoracic aorta. Central venous catheter in place. Osteopenia. Lungs are clear. No pneumothorax IMPRESSION: Cardiomegaly. No acute cardiopulmonary process copyright 2010 [employer]- All Rights Reserved
[2018-07-16 03:22] LABS: TROPONIN I 7.06 ng/mL
[2018-07-16] MEDS ORDERED: ASPIRIN 81 MG TABLET, CHEWABLE PO ONE (03:22)
[2018-07-16] MEDS ORDERED: NITROGLYCERIN 2% OINTMENT 1 GM PACKET TP ONE (03:36)
[2018-07-16 05:22] VITALS: BP 140/90
--- NOTE | 2018-07-16 10:25 | EKG REPORT ---
SEVERITY:- ABNORMAL ECG - ATRIAL FIBRILLATION, V-RATE 55-66 RIGHT AXIS DEVIATION PROLONGED QT INTERVAL : Confirmed by: Deborah Dumont 16-Jul-2018 10:24:15
== END 2018-07-16 05:30 | disposition short-term general hospital (02) ==
LOC: ER 01:58
DX: I21.4 Non-ST elevation (NSTEMI) myocardial infarction (principal); I13.2 Hypertensive heart and chronic kidney disease with heart failure and with stage 5 chronic kidney disease, or end stage renal disease; E10.22 Type 1 diabetes mellitus with diabetic chronic kidney disease; N18.6 End stage renal disease; I50.9 Heart failure, unspecified; Z99.2 Dependence on renal dialysis; I48.91 Unspecified atrial fibrillation; Z88.8 Allergy status to other drugs, medicaments and biological substances; J44.9 Chronic obstructive pulmonary disease, unspecified
CPT/HCPCS: 93005; 99291; 96374; 96375; 36415; 82553; 85025; 80053; 84484; 83880; 71045; 93010; A9270 ×2; C9113; S0028; S0164

== ENCOUNTER → 2018-12-25 | Outpatient (CLI) | payer MEDICARE, OTHER ==
--- NOTE | 2018-12-25 09:36 | WOMENS IMAGING REPORT ---
EXAM DESCRIPTION: 3D SCREENING MAMMO LEFT COMPLETED DATE/TIME: 12/25/2018 7:51 am REASON FOR STUDY: Z12.31 ROUTINE 3D LEFT SCREENING Z12.31 ENCNTR SCREEN MAMMOGRAM FOR MALIGNANT [place]MAN PLASM OF CHRISTIAN COMPARISON: 12/12/2017 and 12/11/2016. EXAM PARAMETERS: Standard craniocaudal and mediolateral oblique views of the breast recorded using digital acquisition and breast tomosynthesis. Read with the assistance of CAD. .[facility] - [employer]2 [employer] Version 9.2 LIMITATIONS: None. FINDINGS: BREAST: left Findings present which are benign by mammographic criteria. No suspicious masses, calcifications or a rchitectural distortion. Pertinent benign findings: Stable calcifications. Benign mammographic findings may include one or more of the following: Smooth masses, popcorn/rim/co arse calcifications, asymmetries, post-procedure changes, and lesions with long-standing stability. IMPRESSION: BENIGN FINDINGS. BIRADS 2. BREAST DENSITY: c. The breasts are heterogeneously dense, which may obscure small masses. BIRAD: ASSESSMENT: 2 Benign Finding(s) RECOMMENDATION: RECOMMENDATION: ROUTINE SCREENING. COMMENT: The patient has been notified of the results by letter per SA requirements. Additional no tification policies are in place for contacting patient with suspicious or incomplete findings. Quality ID #225: The [employer] recommends an annual screening mammogram for women aged 40 years or over. This facility utilizes a reminder system to ensure that all patients receive reminder letters, and/or direct phone calls for appointments. This includes reminders for routine scr eening mammograms, diagnostic mammograms, or other Breast Imaging Interventions when appropriate. Th is patient will be placed in the appropriate reminder system. TECHNICAL DOCUMENTATION: FINDING NUMBER: (1) ASSESSMENT: (1) JOB ID: [id number] [employer]- All Rights Reserved Reading location - IP/workstation name: [email or web address]
== END ==
LOC: WI 07:23
PROVIDERS: ATTEND Internal Medicine Medical Oncology
DX: Z12.31 Encounter for screening mammogram for malignant neoplasm of breast (principal)

== ENCOUNTER → 2020-01-10 | Outpatient (CLI) | payer MEDICARE, OTHER ==
--- NOTE | 2020-01-10 14:33 | WOMENS IMAGING REPORT ---
EXAM DESCRIPTION: LEFT SCREENING MAMMO W/CAD IMAGES COMPLETED DATE/TIME: 01/10/2020 6:57 am REASON FOR STUDY: Z12.31 ENCOUNTER FOR SCREENING MAMMOGRAM FOR MALIGNANT NEOPLASM OF BREAST Z12.31 ENCNTR SCREEN MAMMOGRAM FOR MALIGNANT NEOPLASM OF [place]RISTIAN COMPARISON: 12/25/2018, 12/12/2017, 12/11/2016, 12/11/2015 EXAM PARAMETERS: Standard craniocaudal and mediolateral oblique views of each breast recorded using digital acquisition. . Read with the assistance of CAD. .[facility] - [employer] Physician Version 9.2 LIMITATIONS: None. FINDINGS: Findings present which are benign by mammographic criteria. No suspicious masses, calcifi cations or architectural distortion. Pertinent benign findings: Developing vascular and dystrophic calcification. Benign mammographic findings may include one or more of the following: Smooth masses, popcorn/rim/co arse calcifications, asymmetries, post-procedure changes, and lesions with long-standing stability. IMPRESSION: BENIGN MAMMOGRAPHIC FINDINGS. BIRADS 2 BREAST DENSITY: b. There are scattered areas of fibroglandular density. BIRAD: ASSESSMENT: 2 BENIGN FINDING(S) RECOMMENDATION: ROUTINE SCREENING COMMENT: The patient has been notified of the results by letter per MQSA requirements. Additional no tification policies are in place for contacting patient with suspicious or incomplete findings. Quality ID #225: The [employer] recommends an annual screening mammogram for women aged 40 years or over. This facility utilizes a reminder system to ensure that all patients receive reminder letters, and/or direct phone calls for appointments. This includes reminders for routine scr eening mammograms, diagnostic mammograms, or other Breast Imaging Interventions when appropriate. Th is patient will be placed in the appropriate reminder system. TECHNICAL DOCUMENTATION: FINDING NUMBER: (1) ASSESSMENT: (1) JOB ID: [id number] 2010 [employer]- All Rights Reserved Reading location - IP/workstation name: [email or web address]
== END ==
LOC: WI 07:35
PROVIDERS: ATTEND Physician Assistant Medical
DX: Z12.31 Encounter for screening mammogram for malignant neoplasm of breast (principal)